=== PATIENT | female | born 1955 | race Caucasian/White ===

== ENCOUNTER 2018-05-26 07:08 | Emergency (ER) | payer MEDICARE, BC ==
[~2018-05-26] VITALS: Ht 162.6 cm; Wt 95.5 kg
[2018-05-26 07:17] VITALS: Ht 162.6 cm; Wt 95.5 kg
--- NOTE | 2018-05-26 07:36 | ERD ---
ER Documentation Chief Complaint Chief Complaint PALPITATIONS AT 0400. AFIB W/ RVR FROM RESCUE. NSR ON ARRIVAL HPI This is a 63-year-old female who is here for heart palpitations. The patient woke up this morning and felt fine and she suddenly had heart palpitations with little bit of difficulty breathing but no chest pain. They called the paramedics and she was found to be in A. fib with RVR. The patient had the exact same thing happened 2 years ago however at that time she did have chest pain she was admitted to the hospital for a negative cardiac workup. Currently she feels back to normal. Her EKG here is also normal. She has no formal diagnosis of A. fib ROS All systems reviewed and are negative except as per history of present illness. Allergies Allergies: Coded Allergies: No Known Allergy (Unverified , 05/26/18) PMhx/Soc History of Surgery: No Anesthesia Reaction: No Hx Neurological Disorder: No Hx Respiratory Disorders: No Hx Cardiac Disorders: Yes (HTN) Hx Psychiatric Problems: No Hx Miscellaneous Medical Probl: Yes (GERD) Hx Substance Use: No Hx Tobacco Use: No Smoking Status: Never smoker FmHx Family History: No coronary disease Physical Exam Vitals Vital Signs Date Temp Pulse Resp B/P (MAP) Pulse Ox O2 O2 Flow FiO2 Time Delivery Rate 05/26/18 Nasal 2 08:07 Cannula 05/26/18 97.7 74 16 145/82 98 07:17 (103) Physical Exam Const: [Well-developed, well-nourished] Head: [Atraumatic, normocephalic] Eyes: [Normal Conjunctiva, PERRLA, EOMI, normal sclera, no nystagmus] ENT: [Normal External Ears, Nose and Mouth, moist mucus membranes.] Neck: [Full range of motion. No meningismus, no lymphadenopathy.] Resp: [Clear to auscultation bilaterally, no wheezing, rhonchi, rales] Cardio: [Regular rate and rhythm, no murmurs, S1 S2 present] Abd: [Soft, non tender x 4, non distended. Normal bowel sounds, no guarding or rebound, no pulsitile abdominal masses or bruits] Skin: [No petechiae or rashes, no ecchymosis , no maculopapular rash] Back: [No midline or flank tenderness] Ext: [No cyanosis, or edema, FROM x 4, normal inspection, neurovascularly intact x 4] Neur: [Awake and alert, STR 5/5 x 4, sensation intact x 4, no focal findings, cerebellum intact] Psych: [Normal Mood and Affect] Result Diagram: 05/26/18 0746 05/26/18 0746 Results 24 hrs Laboratory Tests Test 05/26/18 07:46 White Blood Count 6.4 10^3/ul Red Blood Count 4.74 10^6/ul Hemoglobin 13.2 g/dl Hematocrit 40.6 % Mean Corpuscular Volume 85.7 fl Mean Corpuscular Hemoglobin 27.8 pg Mean Corpuscular Hemoglobin Concent 32.5 g/dl Red Cell Distribution Width 13.0 % Platelet Count 263 10^3/UL Mean Platelet Volume 9.6 fl Immature Granulocytes % 0.200 % Neutrophils % 59.2 % Lymphocytes % 31.1 % Monocytes % 7.6 % Eosinophils % 1.4 % Basophils % 0.5 % Nucleated Red Blood Cells % 0.0 /100WBC Immature Granulocytes # 0.010 10^3/ul Neutrophils # 3.8 10^3/ul Lymphocytes # 2.0 10^3/ul Monocytes # 0.5 10^3/ul Eosinophils # 0.1 10^3/ul Basophils # 0.0 10^3/ul Nucleated Red Blood Cells # 0.0 10^3/ul Sodium Level 139 mmol/L Potassium Level 4.1 mmol/L Chloride Level 107 mmol/L Carbon Dioxide Level 24 mmol/L Anion Gap 8 Blood Urea Nitrogen 13 mg/dl Creatinine 0.48 mg/dl Est Glomerular Filtrat Rate mL/min > 60 mL/min Glucose Level 106 mg/dl Calcium Level 9.5 mg/dl Total Bilirubin 0.9 mg/dl Direct Bilirubin 0.00 mg/dl Indirect Bilirubin 0.9 mg/dl Aspartate Amino Transf (AST/SGOT) 19 IU/L Alanine Aminotransferase (ALT/SGPT) 26 IU/L Alkaline Phosphatase 64 IU/L Troponin I < 0.012 ng/ml Total Protein 7.2 g/dl Albumin 4.2 g/dl Globulin 3.00 g/dl Albumin/Globulin Ratio 1.40 Procedures/MDM EKG: Rate/Rhythm: Normal sinus rhythm heart rate 68 QRS, ST, QT: NORMAL IA, QRS, QT] Impression: NORMAL EKG MR #: [id number] DOS: 05/26/18 0733 Ordering MD: KATARINA ARORA DO Location: E/R Room/Bed: PROCEDURE: Single view chest. CLINICAL INDICATION: Chest pain TECHNIQUE: Single view of the chest was obtained COMPARISON: None FINDINGS: There is no airspace consolidation or focal infiltrate. No pleural effusion or pneumothorax. Cardiac silhouette and mediastinal contours are unremarkable. Pulmonary vasculature appears normal. Regional bones are grossly unremarkable. IMPRESSION: No evidence of active cardiopulmonary disease. RPTAT: [facility] Physician Antonette Date Time Electronically viewed and signed by Physician Antonette on 05/26/2018 08:15 xB/ CC: KATARINA ARORA DO [id number] Patient's labs are unremarkable. [facility] chief This patient has rhythm strips and EKG from EMS which does show A. fib with RVR. Currently she has self converted to normal sinus rhythm. Will follow up with transmitter chief and will write prescription for calcium channel josefa Departure Diagnosis: Primary Impression: Atrial fibrillation Atrial fibrillation type: paroxysmal Qualified Codes: I48.0 - Paroxysmal atrial fibrillation Additional Impression: Palpitations Condition: Stable KATARINA ARORA DO May 26, 2018 07:36
[2018-05-26] MEDS ORDERED: DILT240C79 PO (09:12)
[2018-05-26 09:33] VITALS: BP 132/75; PULSE 54; RESP 16
== END 2018-05-26 09:34 | disposition home or self-care (01) ==
LOC: E/R 07:08
DX: I48.0 Paroxysmal atrial fibrillation (principal); I10 Essential (primary) hypertension
CPT/HCPCS: 36415; 71045; 80053; 84484; 85025; 93005